=== PATIENT | female | born 1935 | race Caucasian/White ===

== ENCOUNTER 2016-10-13 14:17 | Emergency (ER) | payer OTHER ==
[~2016-10-13 14:17] MED LIST: ACET500CAP PO; ALLERGY INJECTIONS IM; ANOROELLIPTA INH; APIDRA SC; ASAB PO; AVAP150 PO; BIST PO; C5; CARDCD120 PO; CARTIA XT120 MG/24 PO; CORDARONE PO; CYANO1000T PO; DILT-XR120 MG PO; DILT-XR180 MG PO; DRONED400 PO; ELIQUIS 2.5 MG2.5 MG PO; ELIQUIS 5 MG TAB5 MG PO; ESTRACE1 MG PO; ESTRADIOL1 MG PO; GLUCOPHAGE1000 MG PO; GLUCPH PO; GYNODIOL1 MG PO; HCTZ25B PO; KDUR10 PO; KLOR-CON M2020 MEQ PO; L20 PO; L40 PO; LEVOTHYROXIN50 MCG PO; LEXAPRO10 PO; LEXAPRO5 MG PO; LOP25 PO; MAGNESIUM 500 MG PO; MAGNESIUM OTC PO; MAGNESIUM OXIDE PO; MAGNESIUM PO; MAGOX4 PO; METFORMIN PO; MICROZIDE PO; NEUR300 PO; NEXIUM40 PO; NITROSTAT0.4 MG PO; NITROSTAT0.4 MG SL; NORCO1 TA1 PO; NORV25 PO; NORV5 PO; OMNICEF300 PO; P10 PO; P20 PO; P5 PO; PACERONE200 MG PO; PACERONE400 MG PO; PANTOPRAZOLE; PRAV10 PO; PRESERVISION A1 EAC1 PO; PRESERVISION A1 EACH PO; PRESERVISION PO; PRILO PO; PROTONIX PO; RAN500 PO; RYTHMOL150 MG PO; RYTHMOL300 MG PO; SPIRO25 PO; SYN.05 PO; T PO; TRAZ100 PO; TRAZODONE150 MG PO; VITAMIN B-12 OTC PO; VITAMIN B-12 PO; VITD PO; X25 PO; X5 PO; ZESTORETIC1 TAB PO; ZYRTEC ALLGY10 MG PO; ZYVOXPO PO; [UNRECOGNIZED DRUG - CODE] PO; [UNRECOGNIZED DRUG - OTHER] PO
[2016-10-13 15:11] LABS: BASOPHILS 0.3 %; BASOPHILS ABSOLUTE 0.04 10/3/uL (0.0-0.16); EOSINOPHILS 0.8 %; EOSINOPHILS ABSOLUTE 0.12 10/3/uL (0.0-0.53); ER CBC TAT 0 Hrs 11 Mins; HEMATOCRIT 41.2 % (36.0-48.0); IMMATURE GRANULOCYTES 0.8 %; IMMATURE GRANULOCYTES ABSOLUTE 0.12 10/3/uL (0.0-0.11); LYMPHOCYTES 6.2 %; LYMPHOCYTES ABSOLUTE 0.97 10/3/uL (0.67-4.30); MEAN CORPUS HGB CONC 31.6 g/dL (32.0-36.0); MEAN CORPUSCULAR HEMOGLOB 24.4 pg (26.0-34.0); MEAN PLATELET VOLUME 10.1 fL (9.2-13.0); MONOCYTES 5.2 %; MONOCYTES ABSOLUTE 0.81 10/3/uL (0.21-1.20); NEUTROPHILS 86.7 %; NEUTROPHILS ABSOLUTE 13.49 10/3/uL (2.02-8.40); NUCLEATED RED BLOOD CELLS 0.8 /100WBC (0-0); PLATELET COUNT 554 10/3/uL (150-400); RBC DISTRIBUTION WIDTH 16.7 % (12.0-16.0); RED CELL COUNT 5.32 10/6/uL (4.0-5.6); WHITE BLOOD CELLS 15.6 10/3/uL (4.5-10.5)
[2016-10-13 15:12] LABS: MANUAL DIFF NO %; MEAN CORPUSCULAR VOLUME 77.4 fL (80-100)
[2016-10-13 15:13] LABS: INTERNATIONAL NORMAL RATI 1.4 UNITS (-); PARTIAL THROMBO TIME 36.5 SEC (22.5-37.2)
[2016-10-13 15:14] LABS: PROTIME (NOT ORD) 16.6 SEC (12.0-14.5)
[2016-10-13 15:16] LABS: CHLORIDE, SERUM 103 MMOL/L (96-112); GLUCOSE, SERUM 125 MG/DL (60-99); POTASSIUM, SERUM 5.1 MMOL/L (3.5-5.3); SODIUM, SERUM 132 MMOL/L (135-148)
[2016-10-13 15:18] LABS: BUN (BLOOD UREA NITROGEN) 17 MG/DL (6-23); CO2 (CARBON DIOXIDE) 25 MMOL/L (24-34)
[2016-10-13 15:33] LABS: ER DIFF TAT 0 Hrs 33 Mins; LYMPHOCYTES 5 %; LYMPHOCYTES ABSOLUTE (CALC) 0.78 10/3/uL (0.67-4.30); MONOCYTES 5 %; MONOCYTES ABSOLUTE (CALC) 0.78 10/3/uL (0.21-1.20); NEUTROPHILS ABSOLUTE (CALC) 14.04 10/3/uL (2.02-8.40); PLATELET ESTIMATE SLT INC (ADEQUATE); SEGMENTED NEUTROPHIL (0) 90 %; TOTAL NUCLEATED CELLS 100
[2016-10-13 15:34] LABS: ANISOCYTOSIS 1+ (5-10/OIF) (0-5/OIF); CREATININE 1.87 MG/DL (0.55-1.02); GFR AFRICAN AMERICAN 29 ML/MIN (>=60); GFR NON AFRICAN AMERICAN 25 ML/MIN (>=60); TROPONIN I <0.02 NG/ML (<0.05)
[2016-10-13 15:35] LABS: CHEST PAIN PROFILE TAT 0 Hrs 34 Mins; ELLIPTOCYTES 1+ (3-10/OIF) (0-2/OIF); HYPOCHROMIA 1+ (3-10/OIF) (0-2/OIF)
[2016-10-13 16:55] LABS: ASCORBIC ACID (UR NOT ORDER) NEG (NEG); BILIRUBIN, URINE NEGATIVE (NEG); ER URINALYSIS TAT 0 Hrs 16 Mins; KETONE, URINE NEGATIVE (NEG); LEUKOCYTE ESTERASE(NOT OR NEG (NEG); NITRITE (URINE) NEG (NEG); WBC (NOT ORDERED) (RFLEX) < 1 (0-5)
[2016-11-10] MEDS ORDERED: APIDRA SC (21:30)
[2016-11-18] MEDS ORDERED: LEVAQUIN750 MG PO (10:44)
== END 2016-10-13 18:00 | disposition home or self-care (01) ==
LOC: ER 14:17
PROVIDERS: Emergency Medicine
DX: N18.9 Chronic kidney disease, unspecified (principal); J44.9 Chronic obstructive pulmonary disease, unspecified; I25.2 Old myocardial infarction; I48.91 Unspecified atrial fibrillation; M79.7 Fibromyalgia; Z87.01 Personal history of pneumonia (recurrent); E10.9 Type 1 diabetes mellitus without complications; Z95.0 Presence of cardiac pacemaker; Z87.891 Personal history of nicotine dependence; Z88.5 Allergy status to narcotic agent; Z88.6 Allergy status to analgesic agent; Z88.8 Allergy status to other drugs, medicaments and biological substances; Z79.899 Other long term (current) drug therapy
CPT/HCPCS: 71020; 80048; 81001; 83735; 84484; 85025; 85610; 85730; 93005; 96372; 99285

== ENCOUNTER 2016-10-24 21:30 | Observation (INO) | payer OTHER ==
--- NOTE | ~2016-10-24 | HP ---
History And Physical [place] [address] [facility] [place]. [address] NAME: JANAY VANEGAS : 35 STATUS : ADM Mariano PAT#: [id number] AGE: 80 ADM/REG DATE : 10/25/16 MR#: [id number] REPORT SERV DATE: 10/25/16 DICTATED BY: CECE CASTRO DATE: 10/25/16 REPORT STATUS : Draft TRANSCRIBED BY: MODEmy DATE: 10/25/16 DATE OF ADMISSION: 10/25/2016 EXECUTIVE CANDIDATE DEVELOPER: Matthew Mcelroy M.D. CHIEF COMPLAINT: Chest pain with near syncopal event. HISTORY OF PRESENT ILLNESS: A very pleasant 80-year-old white female with no known history of CAD, but followed by Dr. Mcelroy for history of sick sinus syndrome status post pacemaker [place] [address] Spence. The patient confirms she has also had a history of atrial fib and flutter, now well-managed on metoprolol, Multaq, Cardizem, and Eliquis. The patient states that she was sitting on the couch on 10/24/2016 around 1700 hours she arose from the couch and while after taking several steps she began "wobbling" and "nearly passed out." Her family caught her and settled her to the floor. She described some chest pressure with that event that radiated down both arms and into her posterior neck. At that time, she rated the chest pain a 5/10. At the time of interview in the [facility], she is pain free. She also reports associated shortness of breath, nausea, dizziness, and belching. Denies any diaphoresis. The episode lasted several hours in duration. No medications were provided at home. She describes the chest pain as a pressure. The patient denies any personal history of myocardial infarction, stroke, DVT, or pulmonary embolus. The patient was treated for pneumonia two months ago. Rare palpitations noted. No recent syncopal episodes noted. Denies PND or orthopnea. Of note, the patient states she is currently taking Lasix 20 mg daily and spironolactone 25 mg daily. [place] by her PCP Dr. Lopez. Her daughter who is present at bedside, confirms that her weight at home has been consistent at 170 pounds. She seemingly has done well on this dose adjustment, does not report any edema. PAST MEDICAL HISTORY: 1. Hypertension. 2. Dyslipidemia. 3. AODM. 4. Sick sinus syndrome status post pacemaker by Dr. Spence in 2008. 5. Fibromyalgia. 6. COPD, on 2 L nasal cannula round the clock. 7. History of atrial flutter and atrial fibrillation status post DCCV, 07/2013. 8. CKD stage 3. 9. Hypothyroidism, on replacement. 10.History of pericardial effusion status post pericardiocentesis, 10/2014. 11.DJD. PAST SURGICAL HISTORY: 1. [employer] dual chamber pacemaker in 2008. 2. [place] fundoplication. 3. Hysterectomy. History And Physical [address] [address] NAME: JANAY VANEGAS : 35 STATUS : ADM Mariano PAT#: [id number] AGE: 80 ADM/REG DATE : 10/25/16 MR#: [id number] REPORT SERV DATE: 10/25/16 DICTATED BY: CECE CASTRO DATE: 10/25/16 REPORT STATUS : Draft TRANSCRIBED BY: RENE DATE: 10/25/16 4. Cholecystectomy. 5. Appendectomy. 6. Cataract repair. 7. Bilateral total knees. SOCIAL HISTORY: She is with three children. She never worked outside the home. She does not have an exercise routine. Never smoker, but exposed to secondhand smoke. Denies alcohol or illicits. FAMILY HISTORY: Father at 69 of a heart attack. Mother with CAD and bypass in her 70s, at 81. A brother in his 60s of a heart attack. REVIEW OF SYSTEMS: A 14-point review of systems performed, significant for HPI including home blood sugars of 122 to 200 with sliding scale insulin at home and a pacemaker interrogations every six weeks due to battery nearing end-of-life per report. Otherwise complete review of systems obtained and negative. ALLERGIES: ALLERGY TO HYTRIN, RASH; NSAIDS, CLIMBS THE HEATH; AND CODEINE, CRAMPING. HOME MEDICATIONS: Tylenol p.r.n., Xanax 0.5 mg three times daily, Eliquis 2.5 mg twice daily, biotin capsules, Zyrtec 10 mg daily, vitamin B12 1000 mcg daily, diltiazem ER 120 mg daily, Multaq 400 mg twice daily, vitamin D 50,000 units weekly, Lexapro 10 mg nightly, Estrace 1 mg daily, Lasix 20 mg daily, gabapentin 300 mg nightly, Apidra insulin sliding scale, Culturelle capsule daily, Synthroid 50 mcg daily, magnesium oxide 500 mg nightly, metoprolol tartrate 12.5 mg twice daily, nitroglycerin p.r.n., Protonix 40 mg daily, K-Dur 20 mEq nightly, Pravachol 10 mg nightly, prednisone 7.5 mg daily, spironolactone 25 mg daily, trazodone 150 mg nightly, and PreserVision capsules daily. PHYSICAL EXAMINATION: BLOOD PRESSURE: 146/67, PULSE: 60, RESPIRATORY RATE: 19, TEMPERATURE: 97.4, O2 saturation 99% on room air. HEIGHT: 5 feet 4 inches, WEIGHT: 173 pounds. BMI of 29.7. GENERAL: Cooperative, in no apparent distress. HEENT: Pupils 2 mm, sclera nonicteric. Nares patent. Moist mucous membranes. No xanthelasma. NECK: Trachea midline, no thyromegaly. No JVD. No bruits. LYMPH: No cervical lymphadenopathy. No supraclavicular lymphadenopathy. RESPIRATORY: Unlabored respirations. Breath sounds clear bilaterally to posterior auscultation. No wheezes or rhonchi. CARDIOVASCULAR: 1/6 murmur best audible near left axilla. EXTREMITIES: Without edema. Pulses 2+ bilaterally. ABDOMEN: Soft, nontender, nondistended, normal bowel sounds auscultated throughout. No organomegaly. SKIN: Warm, dry extremities. No pallor, or cyanosis. PSYCHIATRIC: Appropriate affect. Alert, oriented x3. LABORATORY DATA: Troponin less than 0.02 x3. Potassium 4.9, BUN 23, creatinine 1.8 History And Physical [address] [address] NAME: JANAY VANEGAS : 35 STATUS : ADM Mariano PAT#: [id number] AGE: 80 ADM/REG DATE : 10/25/16 MR#: [id number] REPORT SERV DATE: 10/25/16 DICTATED BY: CECE CASTRO DATE: 10/25/16 REPORT STATUS : Draft TRANSCRIBED BY: MODL DATE: 10/25/16 (baseline 1.6 to 2), glucose 89, and magnesium 2.1. WBC 14.1, hemoglobin 12.9, hematocrit 41.2, and platelet count 628,000. UA; within normal limits. EKG; atrial paced with lateral ST-abnormalities noted. Echo, 12/2015: EF of 55% to 60%. Mild biatrial enlargement. Trivial pericardial effusion. MPI, 02/2015: Incomplete due to atrial fibrillation with normal rest images. ASSESSMENT AND PLAN: 1. Chest pain in a patient with multiple risk factors. She has been observed in the [facility]. Three sets of cardiac markers are negative. Pacemaker, atrial paced. N.p.o. for MPI today. If interrogation of device is within normal limits, the patient will be discharged home, if low risk, no ischemia to follow up with her PCP, and master data analyst as appropriate. If anything suggestive of ischemia, Cardiology referral will be initiated. 2. A near syncopal event. Check a TSH. Check echo and interrogate device. 3. History of atrial fibrillation and flutter. Interrogate device. Continue home medications after MPI. No documented atrial fibrillation and flutter during this hospitalization. 4. Hypertension. Monitor blood pressure. Continue home medications. 5. Dyslipidemia. Continue statin. 6. NOAC. Eliquis 2.5 mg twice daily. 7. Euvolemic. No signs of heart failure or overload. Currently on Lasix 20 daily with consistent home weight of 170 pounds per report. ANNA/RENE Cece Castro, MSN, CUSTODIAL FOREMAN-BC / [id number] CC: Cece Castro, JENNIFER, CUSTODIAL FOREMAN-BC Rishi Ghosh M.D.
[2016-10-24 21:24] LABS: BASOPHILS 0.4 %; BASOPHILS ABSOLUTE 0.05 10/3/uL (0.0-0.16); EOSINOPHILS 1.5 %; EOSINOPHILS ABSOLUTE 0.21 10/3/uL (0.0-0.53); ER CBC TAT 0 Hrs 13 Mins; HEMATOCRIT 41.2 % (36.0-48.0); HEMOGLOBIN 12.9 g/dL (12.0-16.0); IMMATURE GRANULOCYTES 0.6 %; IMMATURE GRANULOCYTES ABSOLUTE 0.08 10/3/uL (0.0-0.11); LYMPHOCYTES 11.7 %; LYMPHOCYTES ABSOLUTE 1.66 10/3/uL (0.67-4.30); MEAN CORPUS HGB CONC 31.3 g/dL (32.0-36.0); MEAN CORPUSCULAR HEMOGLOB 24.1 pg (26.0-34.0); MEAN PLATELET VOLUME 10.2 fL (9.2-13.0); MONOCYTES 6.5 %; MONOCYTES ABSOLUTE 0.92 10/3/uL (0.21-1.20); NEUTROPHILS 79.3 %; NEUTROPHILS ABSOLUTE 11.22 10/3/uL (2.02-8.40); PLATELET COUNT 628 10/3/uL (150-400); RBC DISTRIBUTION WIDTH 16.8 % (12.0-16.0); RED CELL COUNT 5.35 10/6/uL (4.0-5.6); WHITE BLOOD CELLS 14.1 10/3/uL (4.5-10.5)
[2016-10-24 21:25] LABS: MANUAL DIFF NO %
[2016-10-24 21:29] LABS: INTERNATIONAL NORMAL RATI 1.1 UNITS (-); PARTIAL THROMBO TIME 31.3 SEC (22.5-37.2); PROTIME (NOT ORD) 14.4 SEC (12.0-14.5)
[2016-10-24 21:38] LABS: CALCIUM, SERUM 8.8 MG/DL (8.5-10.4); CHEST PAIN PROFILE TAT 0 Hrs 27 Mins; CHLORIDE, SERUM 99 MMOL/L (96-112); CREATININE 1.84 MG/DL (0.55-1.02); GFR AFRICAN AMERICAN 29 ML/MIN (>=60); GFR NON AFRICAN AMERICAN 25 ML/MIN (>=60); POTASSIUM, SERUM 4.9 MMOL/L (3.5-5.3); SODIUM, SERUM 138 MMOL/L (135-148); TROPONIN I <0.02 NG/ML (<0.05)
[2016-10-24 21:39] LABS: BUN (BLOOD UREA NITROGEN) 23 MG/DL (6-23); CO2 (CARBON DIOXIDE) 33 MMOL/L (24-34); GLUCOSE, SERUM 89 MG/DL (60-99)
[2016-10-25] MEDS ORDERED: X5 PO (00:51)
[2016-10-25] MEDS ORDERED: LEXAPRO10 PO (00:52)
[2016-10-25] MEDS ORDERED: TRAZODONE150 MG PO (00:52)
[2016-10-25] MEDS ORDERED: SYN.05 PO (00:53)
[2016-10-25] MEDS ORDERED: LOP25 PO (00:54)
[2016-10-25] MEDS ORDERED: SPIRO25 PO (00:54)
[2016-10-25] MEDS ORDERED: ESTRACE1 MG PO (00:55)
[2016-10-25] MEDS ORDERED: PROTONIX PO (00:55)
[2016-10-25] MEDS ORDERED: P5 PO (00:56)
[2016-10-25] MEDS ORDERED: ELIQUIS 2.5 MG2.5 MG PO (00:59)
[2016-10-25] MEDS ORDERED: PRAV10 PO (01:00)
[2016-10-25] MEDS ORDERED: CARTIA XT120 MG/24 PO (01:00)
[2016-10-25] MEDS ORDERED: NEUR300 PO (01:02)
[2016-10-25] MEDS ORDERED: L20 PO (01:02)
[2016-10-25] MEDS ORDERED: DRONED400 PO (01:04)
[2016-10-25] MEDS ORDERED: KDUR20 PO (01:05)
[2016-10-25] MEDS ORDERED: CYANO1000T PO (01:05)
[2016-10-25] MEDS ORDERED: HARD NAILS PO (01:06)
[2016-10-25] MEDS ORDERED: MAG OXIDE250 MG PO (01:06)
[2016-10-25] MEDS ORDERED: VITD PO (01:07)
[2016-10-25] MEDS ORDERED: ZYRTEC ALLGY10 MG PO (01:07)
[2016-10-25] MEDS ORDERED: CULTURELLE1 EACH PO (01:07)
[2016-10-25] MEDS ORDERED: NITROSTAT0.4 MG SL (01:09)
[2016-10-25] MEDS ORDERED: APIDRA SC (01:11)
[2016-10-25] MEDS ORDERED: T PO (01:11)
[2016-10-25] MEDS ORDERED: PRESERVISION A1 EACH PO (01:12)
[2016-10-25 02:14] LABS: ASCORBIC ACID (UR NOT ORDER) NEG (NEG); BILIRUBIN, URINE NEGATIVE (NEG); ER URINALYSIS TAT 0 Hrs 00 Mins; KETONE, URINE NEGATIVE (NEG); LEUKOCYTE ESTERASE(NOT OR NEG (NEG); NITRITE (URINE) NEG (NEG); WBC (NOT ORDERED) (RFLEX) 1 (0-5)
[2016-10-25 06:28] LABS: TROPONIN I <0.02 NG/ML (<0.05)
[2016-11-10] MEDS ORDERED: APIDRA SC (21:30)
[2016-11-18] MEDS ORDERED: LEVAQUIN750 MG PO (10:44)
== END 2016-10-25 17:00 | disposition home or self-care (01) ==
LOC: ER 21:30 → CDU1 10-25 00:35 → CDU2 10-25 00:53
PROVIDERS: Clinical Nurse Specialist; Emergency Medicine
DX: R07.9 Chest pain, unspecified (principal); R55 Syncope and collapse; I10 Essential (primary) hypertension; E78.5 Hyperlipidemia, unspecified; E11.8 Type 2 diabetes mellitus with unspecified complications; M79.7 Fibromyalgia; J44.9 Chronic obstructive pulmonary disease, unspecified; N18.3 Chronic kidney disease, stage 3 (moderate); E11.22 Type 2 diabetes mellitus with diabetic chronic kidney disease; E03.9 Hypothyroidism, unspecified; M19.90 Unspecified osteoarthritis, unspecified site; Z90.710 Acquired absence of both cervix and uterus; Z90.49 Acquired absence of other specified parts of digestive tract; Z98.890 Other specified postprocedural states; Z82.49 Family history of ischemic heart disease and other diseases of the circulatory system; Z88.5 Allergy status to narcotic agent; Z88.8 Allergy status to other drugs, medicaments and biological substances; Z79.52 Long term (current) use of systemic steroids; Z79.4 Long term (current) use of insulin; Z79.899 Other long term (current) drug therapy
CPT/HCPCS: 71020; 78452; 80048; 81001; 82962; 83735; 84443; 84484; 85025; 85610; 85730; 93005; 93017; 93288; 99285; A9270-GY; A9502; C8929; G0378; J0153; Q9957